=== PATIENT | female | born 1975 | race Caucasian/White ===

== ENCOUNTER 2019-08-12 23:08 | Emergency (ER) | payer SELFPAY ==
[~2019-08-12] VITALS: Ht 157.5 cm; Wt 58.0 kg
[2019-08-12 23:24] VITALS: BP 138/70
== END 2019-08-13 00:40 | disposition left against medical advice (07) ==
LOC: ER 23:08
DX: F41.0 Panic disorder [episodic paroxysmal anxiety] (principal)
CPT/HCPCS: 99283